=== PATIENT | female | born 1985 | race Caucasian/White ===

== ENCOUNTER 2019-03-13 19:32 | Emergency (ER) | payer OTHER ==
[2019-03-13 19:41] VITALS: BP 117/63; PULSE 82; TEMP 98.5; BMI 26.6
--- NOTE | 2019-03-13 21:40 | PDOC ---
Attending Attestation - Resident Resident Name: PhilippNathen menjivar - ED Attending Attestation I have performed the following: I have examined & evaluated the patient, The case was reviewed & discussed with the resident, I agree w/resident's findings & plan - HPI HPI: 03/14/19 00:08 see resident hpi - Physicial Exam PE: 03/14/19 00:09 agree with resident exam - Medical Decision Making 03/14/19 00:09 33-year-old female transgender with chest wall pain new chest x-ray as well as labs and EKG unremarkable Chest pain is completely reproducible on exam NSAIDs and DC home
[2019-03-13 22:20] LABS: BASO % 0.7 % (0-2.0); EOS % 3.8 % (0-4.5); HEMATOCRIT 43.2 % (32.4-45.2); HEMOGLOBIN 14.8 GM/dL (10.7-15.3); LYMPH % 32.7 % (8-40); MCH 31.9 pg (25.7-33.7); MCHC 34.3 g/dl (32.0-36.0); MEAN CELL VOLUME 93.1 fl (80-96); MEAN PLT VOLUME 8.9 fl (7.5-11.1); NEUT % 53.8 % (42.8-82.8); PLATELET COUNT 217 K/MM3 (134-434); RBC 4.64 M/mm3 (3.60-5.2); RDW 12.7 % (11.6-15.6); WHITE BLOOD COUNT 7.3 K/mm3 (4.0-10.0)
[2019-03-13 22:35] LABS: INR 1.08 (0.83-1.09); PROTHROMBIN TIME (PATIENT) 12.8 SEC (9.7-13.0)
[2019-03-13] MEDS ORDERED: KETOROLAC TROMETHAMINE 30 MG/1 ML VIAL IVPUSH ONE (22:38)
--- NOTE | 2019-03-13 22:38 | PDOC ---
History of Present Illness - General Chief Complaint: Chest Pain Stated Complaint: CHEST PAIN Time Seen by Provider: 03/13/19 21:40 History Source: Patient Exam Limitations: No Limitations - History of Present Illness Initial Comments: 03/13/19 22:37 33 transgender female with a PMH of asthma who presents to the ER with 2 days of chest pain. The patient describes anterior L sided chest pain, nonradiating, atraumatic, not associated with SOB, diaphoresis, nausea, vomiting, fever, chills, changes in vision, palpitations, or lightheadedness. She states that she was at work "watching a video of a child being shot" and then developed the pain. She's never had pain like this before but admits that the pain is reproducible to palpation. She admits to taking estradiol q2 weeks. Denies long car rides or plane trips, denies hx of cancer, denies recent surgery, denies hemoptysis, denies tobacco use. Past History - Past Medical History Allergies/Adverse Reactions: Allergies Allergy/AdvReac Type Severity Reaction Status Date / Time No Known Allergies Allergy Verified 03/13/19 19:39 Home Medications: Ambulatory Orders Albuterol Sulfate Inhaler - [Ventolin Hfa Inhaler -] 1 - 2 inh PO QID 03/13/19 Estradiol Valerate 20 mg IM ASDIR 03/13/19 Asthma: Yes COPD: No - Suicide/Smoking/Psychosocial Hx Smoking History: Never smoked Review of Systems - Review of Systems Able to Perform ROS?: Yes Comments:: 03/13/19 22:45 GENERAL/CONSTITUTIONAL: No fever or chills. No weakness. HEAD, EYES, EARS, NOSE AND THROAT: No change in vision. No ear pain or discharge. No sore throat. CARDIOVASCULAR: + for chest pain. No palpitations or lightheadedness. RESPIRATORY: No cough, wheezing, shortness of breath, or hemoptysis. GASTROINTESTINAL: No abdominal pain, nausea, vomiting, diarrhea, or constipation. GENITOURINARY: No dysuria, frequency, hematuria, or change in urination. MUSCULOSKELETAL: No joint or muscle swelling or pain. No neck or back pain. SKIN: No rash or lesions. NEUROLOGIC: No headache, numbness, tingling, focal weakness, loss of consciousness, or change in strength/sensation. Is the patient limited Romanian proficient: No *Physical Exam - Vital Signs Last Vital Signs Temp Pulse Resp BP Pulse Ox 98.5 F 82 18 117/63 100 03/13/19 19:39 03/13/19 19:39 03/13/19 19:39 03/13/19 19:39 03/13/19 19:39 - Physical Exam Comments: 03/13/19 22:46 GENERAL: Well developed, well nourished. Awake and alert. No acute distress. HEENT: Normocephalic, atraumatic. Hearing grossly normal. Moist mucous membranes. PERRLA, EOMI. No conjunctival pallor. Sclera are non-icteric. NECK: Supple. Full ROM. No JVD. CARDIOVASCULAR: Regular rate and rhythm. No murmurs, rubs, or gallops. PULMONARY: No evidence of respiratory distress. Lungs clear to auscultation bilaterally. No wheezing, rales or rhonchi. ABDOMINAL: Soft. Non-tender. Non-distended. No rebound or guarding. GENITOURINARY: No CVA tenderness bilaterally. MUSCULOSKELETAL: TTP over anterior L chest wall. Normal range of motion at all joints. No other bony deformities or tenderness. EXTREMITIES: No cyanosis. No clubbing. No edema. No calf tenderness or swelling. SKIN: Warm and dry. Normal capillary refill. No rashes. No jaundice. NEUROLOGICAL: Alert, awake, appropriate. Cranial nerves 2-12 grossly intact. Normal speech. Gait is normal without ataxia. PSYCHIATRIC: Cooperative. Good eye contact. Appropriate mood and affect. ED Treatment Course - LABORATORY CBC & Chemistry Diagram: 03/13/19 22:11 03/13/19 22:11 - ADDITIONAL ORDERS Additional order review: Laboratory Results 03/13/19 03/13/19 22:11 22:11 PT with INR 12.80 INR 1.08 D-Dimer < 215 03/13/19 22:11 RBC 4.64 MCV 93.1 MCHC 34.3 RDW 12.7 MPV 8.9 Neutrophils % 53.8 Lymphocytes % 32.7 Monocytes % 9.0 Eosinophils % 3.8 Basophils % 0.7 - RADIOLOGY Radiology Studies Ordered: Category Date Time Status CHEST PA & LAT [RAD] Stat Radiology 03/13/19 21:46 Ordered Medical Decision Making - Medical Decision Making 03/13/19 22:46 33 transgender female who presents with reproducible chest pain. Pt PERC + d/t hormones but Well's negative and low risk. Will obtain dimer. EKG unremarkable. Vitals WNL. Pt well appearing, normoxic, not tachycardic or tachypneic. Will monitor closely. CBC WNL. 03/13/19 23:54 CMP, troponin, and d-dimer negative. CXR negative on preliminary read. Pt states she feels much better and has PCP for f/u. Will d/c with PCP f/u. *DC/Admit/Observation/Transfer Diagnosis at time of Disposition: Chest wall pain - Discharge Dispostion Disposition: HOME Condition at time of disposition: Stable Decision to Admit order: No - Referrals - Patient Instructions Printed Discharge Instructions: DI for Atypical Chest Pain Additional Instructions: Your ER visit is not complete until your follow up with your primary care physician. Please follow up with your primary care physician in 1-2 days. Please return to the ER if you have any signs or symptoms of chest pain, shortness of breath, uncontrollable fever, chills, nausea, vomiting, numbness, tingling, or weakness in any part of your body, changes in vision, or slurred speech. Please return to the ER if symptoms persist, worsen, or new symptoms arise. - Post Discharge Activity
[2019-03-13] MEDS ORDERED: KETOROLAC TROMETHAMINE 15 MG/ML VIAL ONE (22:44)
[2019-03-13 22:59] LABS: ALBUMIN 3.8 g/dl (3.4-5.0); BILIRUBIN,TOTAL 0.4 mg/dL (0.2-1); BLOOD UREA NITROGEN 15.9 mg/dL (7-18); CREATININE 0.9 mg/dL (0.55-1.3); TOT PROT 6.9 g/dl (6.4-8.2)
--- NOTE | 2019-03-14 13:09 | EKG ---
Test Reason : Blood Pressure : / mmHG Vent. Rate : 071 BPM Atrial Rate : 071 BPM P-R Int : 138 ms QRS Dur : 082 ms QT Int : 386 ms P-R-T Axes : 058 058 034 degrees QTc Int : 419 ms POOR DATA QUALITY, INTERPRETATION MAY BE ADVERSELY AFFECTED SINUS RHYTHM WITH MARKED SINUS ARRHYTHMIA OTHERWISE NORMAL ECG NO PREVIOUS ECGS AVAILABLE Confirmed by RAFAEL SAGASTUME MD ([id number]) on 03/14/2019 1:09:10 PM Referred By: Confirmed By:RAFAEL SAGASTUME MD
== END 2019-03-14 00:15 | disposition home or self-care (01) ==
LOC: JER 19:32
PROC: 3E0333Z Introduction of Anti-inflammatory into Peripheral Vein, Percutaneous Approach (ICD-10-PCS; principal; 2019-03-13)
DX: R07.89 Other chest pain (principal)
CPT/HCPCS: 36415; 71046-TC-FY; 80053; 82550; 84484; 85025; 85379; 85610; 93005; 93010; 99284-25